=== PATIENT | female | born 1965 | race Caucasian/White ===

== ENCOUNTER 2023-11-02 17:20 | Emergency (ER) | payer BC ==
--- NOTE | 2023-11-02 19:32 | RAD REPORT ---
EXAM DESCRIPTION: RAD - Wrist Left 3 View - 11/02/2023 7:22 pm CLINICAL HISTORY: Pain;Swelling COMPARISON: No comparisons FINDINGS/IMPRESSION: Distal radial impaction fracture which is comminuted and has intra-articular ex tension. Slight dorsal tilt of the distal radius. Ulnar styloid fracture.
--- NOTE | 2023-11-02 19:32 | RAD REPORT ---
EXAM DESCRIPTION: RAD - Forearm Left - 11/02/2023 7:22 pm CLINICAL HISTORY: Pain;Swelling COMPARISON: No comparisons FINDINGS/IMPRESSION: Distal radial impaction fracture with intra-articular extension. Ulnar styloid fracture. No other fractures of the radius or ulna identified.
--- NOTE | 2023-11-02 19:41 | EDPHYS ---
Physician Documentation [facility] Name: Jenni Perea Age: 58 yrs Sex: Female : 1965 Arrival Date: 11/02/2023 Time: 17:20 Bed DX4 Private MD: ED Physician Oscar Goodman HPI: 11/01 19:16 This 58 yrs old Female presents to ER via Ambulatory with complaints of Wrist Injury. kb 19:16 Pt is a 58 year old female who presents for left wrist pain after a trip and fall just kb [employer] airline [employer]. Pt states she tripped over her dog's leash and fell onto outstretched left hand. Denies any other injuries. Historical: - Allergies: 17:34 No Known Allergies; as6 - PMHx: 17:34 None; as6 - PSHx: 17:34 None; as6 - Immunization history:: Adult Immunizations up to date. - Infectious Disease History:: Denies. - Social history:: Smoking status: Patient denies any tobacco usage or history of. ROS: 19:16 Constitutional: As per HPI kb Exam: 19:16 Constitutional: This is a well developed, well nourished patient who is awake, alert, kb and in no acute distress. Head/Face: Normocephalic, atraumatic. ENT: Moist Mucous membranes Cardiovascular: Regular rate Respiratory: Respirations even and unlabored. No increased work of breathing. Talking in full sentences Abdomen/GI: Soft, non-tender. No distention Skin: Warm, dry with normal turgor. Normal color. Neuro: Awake and alert, GCS 15, oriented to person, place, time, and situation. Moves all extremities. Normal gait. 19:16 Musculoskeletal/extremity: Extremities: grossly normal except: noted in the left wrist: decreased ROM, deformity, pain, swelling, tenderness, ROM: limited active range of motion, Circulation is intact in all extremities. Sensation intact. Vital Signs: 17:31 BP 158 / 85; Pulse 83; Resp 18; Temp 97.7; Pulse Ox 97% ; Weight 81.65 kg; Height 5 ft. as6 6 in. ; Pain 7/10; 20:23 BP 128 / 78; Pulse 80; Resp 18; Temp 98; Pulse Ox 100% ; kb3 17:31 Body Mass Index 29.05 (81.65 kg, 167.64 cm) as6 17:31 Pain Scale: Adult as6 MDM: 17:26 Patient medically screened. kb 19:15 Differential diagnosis: sprain, fracture, dislocation. Data reviewed: vital signs, kb nurses notes. Independent interpretation of the following test(s) in the Emergency Department X-Ray: My interpretation is fracture of distal radius and ulna. Counseling: I had a detailed discussion with the patient and/or guardian regarding the historical points, exam findings, and any diagnostic results supporting the discharge/admit diagnosis, radiology results, the need for outpatient follow up, a orthopedic surgeon, to return to the emergency department if symptoms worsen or persist or if there are any questions or concerns that arise at home. 11/01 17:41 Order name: Wrist Left (3 View) XRAY; Complete Time: 19:36 as6 11/01 17:42 Order name: Forearm Left XRAY; Complete Time: 19:36 as6 11/01 19:01 Order name: Sugar Tong Forearm Splint; Complete Time: 20:14 kb 11/01 19:01 Order name: Sling; Complete Time: 20:13 kb Administered Medications: 20:14 Drug: Ibuprofen PO 800 mg PO once Route: PO; kb3 20:23 Follow up: Response: No adverse reaction kb3 20:15 Drug: Hydrocodone-Acetaminophen PO (7.5 mg-325 mg) 1 tabs PO once Route: PO; kb3 20:24 Follow up: Response: No adverse reaction; Pain is unchanged, physician notified kb3 Disposition: 11/02 10:25 Co-signature as Attending Physician, Oscar Goodman MD I reviewed the patient's care rt provided by the Advanced Practice Provider and agree with the diagnosis and treatment plan. Disposition Summary: 11/02/23 19:40 Discharge Ordered Notes: Location: Home kb Condition: Stable kb Diagnosis - distal radial impaction fracture; Ulnar styloid fracture kb Followup: kb - With: Emergency Department - When: As needed - Reason: Worsening of condition Followup: kb - With: Private Physician - When: 2 - 3 days - Reason: Recheck today's complaints, Continuance of care, Re-evaluation by your physician Discharge Instructions: - Discharge Summary Sheet kb - Radial Fracture kb - Ulnar Fracture kb - Cast or Splint Care, Adult, [id number] kb Forms: - Medication Reconciliation Form kb - Antibiotic Education kb - Prescription Opioid Use kb - Patient Portal Instructions kb - Leadership Thank You Letter kb Prescriptions: - Tramadol 50 mg Oral Tablet - take 1 tablet ORAL route every 8 hours as needed; 12 tablet; Refills: 0, kb Product Selection Permitted Signatures: Dispatcher [employer] EDDaphnie Cullen, HARSHC Van Kirkpatrick RN RN as6 Massiel Isaac RN RN kb3 Oscar Goodman MD MD rt
--- NOTE | 2023-11-02 19:41 | ER ---
Nurse's Notes [facility] Name: Jenni Perea Age: 58 yrs Sex: Female : 1965 Arrival Date: 11/02/2023 Time: 17:20 Bed DX4 Private MD: Diagnosis: distal radial impaction fracture; Ulnar styloid fracture Presentation: 11/01 17:31 Chief complaint: Patient states: pt tripped over her dogs leash and caught herself with as6 her left wrist. Coronavirus screen: At this time, the client does not indicate any symptoms associated with coronavirus-19. Ebola Screen: No symptoms or risks identified at this time. Initial Sepsis Screen: Does the patient meet any 2 criteria? No. Patient's initial sepsis screen is negative. Does the patient have a suspected source of infection? No. Patient's initial sepsis screen is negative. Risk Assessment: Do you want to hurt yourself or someone else? Patient reports no desire to harm self or others. Onset of symptoms was November 02, 2023. 17:31 Method Of Arrival: Ambulatory as6 17:31 Acuity: HARRIS 4 as6 Triage Assessment: 17:34 General: Appears in no apparent distress. Behavior is calm, cooperative. Pain: as6 Complains of pain in left wrist. Historical: - Allergies: 17:34 No Known Allergies; as6 - PMHx: 17:34 None; as6 - PSHx: 17:34 None; as6 - Immunization history:: Adult Immunizations up to date. - Infectious Disease History:: Denies. - Social history:: Smoking status: Patient denies any tobacco usage or history of. Screenin:45 [facility] ED Fall Risk Assessment (Adult) History of falling in the last 3 months, kb3 including since admission No falls in past 3 months (0 pts) Confusion or Disorientation No (0 pts) Intoxicated or Sedated No (0 pts) Impaired Gait No (0 pts) Mobility Assist Device Used No (0 pt) Altered Elimination No (0 pt) Score/Fall Risk Level 0 - 2 = Low Risk Oriented to surroundings. Abuse screen: Denies threats or abuse. Nutritional screening: No deficits noted. Tuberculosis screening: No symptoms or risk factors identified. Assessment: 19:45 General: Appears in no apparent distress. Behavior is calm, cooperative. kb3 19:45 Pain: Complains of pain in dorsal aspect of left wrist Pain radiates to dorsal aspect kb3 of left forearm Pain currently is 7 out of 10 on a pain scale. Quality of pain is described as aching, pressure, throbbing. Musculoskeletal: Swelling present in dorsal aspect of left wrist. Vital Signs: 17:31 BP 158 / 85; Pulse 83; Resp 18; Temp 97.7; Pulse Ox 97% ; Weight 81.65 kg; Height 5 ft. as6 6 in. ; Pain 7/10; 20:23 BP 128 / 78; Pulse 80; Resp 18; Temp 98; Pulse Ox 100% ; kb3 17:31 Body Mass Index 29.05 (81.65 kg, 167.64 cm) as6 17:31 Pain Scale: Adult as6 ED Course: 17:26 Patient arrived in ED. mg5 17:26 Daphnie Tavera FNP-C is PHCP. kb 17:26 Oscar Goodman MD is Attending Physician. kb 17:31 Arm band placed on. as6 17:34 Triage completed. as6 17:45 Affected limb iced. as6 19:23 Wrist Left (3 View) XRAY In Process Unspecified. EDMS 19:23 Forearm Left XRAY In Process Unspecified. EDMS 19:45 Patient has correct armband on for positive identification. Provided Education on: kb3 Splint care, tramadol RX, follow up. 19:45 No provider procedures requiring assistance completed. Patient did not have IV access kb3 during this emergency room visit. 20:23 Orthoglass splint: Sugar tong splint applied on left arm. Sling applied to left arm. kb3 Administered Medications: 20:14 Drug: Ibuprofen PO 800 mg PO once Route: PO; kb3 20:23 Follow up: Response: No adverse reaction kb3 20:15 Drug: Hydrocodone-Acetaminophen PO (7.5 mg-325 mg) 1 tabs PO once Route: PO; kb3 20:24 Follow up: Response: No adverse reaction; Pain is unchanged, physician notified kb3 Medication: 19:45 VIS not applicable for this client. kb3 Outcome: 19:40 Discharge ordered by . kb 19:45 Discharged to home ambulatory, with family, kb3 19:45 Condition: stable 19:45 Discharge instructions given to patient, family, Instructed on discharge instructions, follow up and referral plans. medication usage, Splint care Demonstrated understanding of instructions, follow-up care, medications, splint care, Prescriptions given X 1, 20:24 Patient left the ED. kb3 Signatures: Dispatcher [employer] EDMS Daphnie Tavera, VICENTE-C WIRE WEAVER HELPER-Van Taylor RN RN as6 Massiel Isaac RN RN kb3 Christiana Velasquez [facility] [place] [place]
[2023-11-02] MEDS ORDERED: HYDROCODONE/APAP 7.5/325 MG TAB ONE (20:05)
[2023-11-02] MEDS ORDERED: IBUPROFEN 400 MG TAB ONE (20:05)
[2023-11-02 20:51] VITALS: BP 128/78; TEMP 98; O2SAT 100
== END 2023-11-02 20:24 | disposition home or self-care (01) ==
LOC: ER 17:20
PROC: 2W3DX1Z Immobilization of Left Lower Arm using Splint (ICD-10-PCS; principal; 2023-11-02)
DX: S52.502A Unspecified fracture of the lower end of left radius, initial encounter for closed fracture (principal); S52.612A Displaced fracture of left ulna styloid process, initial encounter for closed fracture
CPT/HCPCS: 99284